=== PATIENT | female | born 1955 | race Caucasian/White ===

== ENCOUNTER 2022-05-29 12:59 | Inpatient (IN) | payer OTHER, MEDICAID ==
[~2022-05-29] VITALS: Ht 157.5 cm; Wt 66.7 kg
[2022-05-29 13:00] VITALS: BP_SYST 141
--- NOTE | 2022-05-29 13:00 | NUR ---
DR. CALIX ASSESSED AND PT TAKEN FOR CT SCAN. RECEIVED PT FROM BRIDGET CHAVARRIA . PT IS FROM [facility] WHERE THE STAFF STATES PT HAD A RIGHT LEANING WALK APPROXIMENTLY 4 HOURS AGO NO FACIAL DROOP, ARM OR FOOT DRIFT. PT HAS SLURRED SPEECH BUT SHE STATES SHE SPEAKS LIKE THAT AT BASELINE. VSS. DENIES PAIN. RESP E/U. ON R/A. NORMAL S1S2. ABDOMEN SOFT, NONTENDER, NODISTENDED. DENIES N/V/D/C. SKIN INTACT, DISTAL PULSES NORMAL. SKIN WARM, CAP REFILL < 3 SECS, NO PERIPHERAL EDEMA. IV CATH 18G TO RIGHT WRIST PLACED IN THE FIELD, SITE WNL, DRESSING CDI. DENIES PAIN. Addendum: 05/29/22 at 1339 by [id number] CLARIFICATION/CORRECTION: DR. SANDERS AT BEDSIDE.
--- NOTE | 2022-05-29 13:00 | NUR ---
BROUGHT IN BY [facility], DR SANDERS CALLED TO BEDSIDE. TAKEN IMMEDIATELY TO CT AND WILL GO TO ROOM #6
--- NOTE | 2022-05-29 13:16 | NUR ---
PT BACK FROM CT AND PLACED ON MONITOR. CXR COMPLETED AND LABS DRAWN.
[2022-05-29 13:25] LABS: BASOPHILS # (AUTO) 0.1 K/uL (0.0-0.2); BASOPHILS % (AUTO) 0.9 % (0.0-2.0); EOSINOPHILS # (AUTO) 0.1 K/uL (0.0-0.4); EOSINOPHILS % (AUTO) 1.5 % (0.0-4.0); HEMATOCRIT 38.5 % (36-48); LYMPHOCYTES # (AUTO) 1.7 K/uL (1.0-5.5); LYMPHOCYTES % (AUTO) 27.1 % (20.5-51.5); MEAN CORPUSCULAR VOLUME 87 fL (79.0-98.0); MONOCYTES # (AUTO) 0.5 K/uL (0.0-1.0); MONOCYTES % (AUTO) 7.6 % (1.7-9.3); NEUTROPHILS # (AUTO) 3.9 K/uL (1.8-7.7); NEUTROPHILS % (AUTO) 62.9 % (40.0-70.0); PLATELET COUNT (AUTO) 291 K/uL (130-430); RED BLOOD CELL COUNT(AUTO) 4.45 MIL/uL (4.2-6.2); RED CELL DISTRIBUTION WIDTH 13.1 % (9.0-15.0); WHITE BLOOD COUNT (AUTO) 6.2 K/uL (4.8-10.8)
[2022-05-29 13:38] LABS: ANION GAP 8 (5-15); CALCIUM 9.2 mg/dL (8.4-11.0); CHLORIDE 105 mmol/L (98-107); CREATININE 0.49 mg/dL (0.55-1.30); GLUCOSE 136 mg/dL (70-99); POTASSIUM 4.3 mmol/L (3.5-5.1); UREA NITROGEN, BLOOD 11 mg/dL (8-21)
[2022-05-29 13:40] LABS: GFR AFRICAN AMERICAN 162 mL/min (>90)
[2022-05-29 13:45] LABS: INR 1.1 (0.8-1.2)
[2022-05-29 13:46] LABS: ALANINE AMINOTRANSFERASE 10 U/L (12-78); ASPARTATE AMINOTRANSFERASE 10 U/L (10-37); TOTAL BILIRUBIN 0.4 mg/dL (0.0-1.0)
[2022-05-29 13:49] LABS: ALCOHOL, BLOOD < 3 mg/dL (<10)
[2022-05-29] MEDS ORDERED: KETAMINE 30 MG/3 ML SYRINGE IVP ONE (14:15)
--- NOTE | 2022-05-29 14:40 | NUR ---
PT YELLING AND SPENCER, PT REDIRECTED AND IS QUIET AT THIS TIME. DR. SANDERS STATED TO D/C [facility]. ORDER CARRIED OUT.
[2022-05-29 14:58] LABS: BILIRUBIN,URINE NEGATIVE (NEGATIVE); BLOOD, URINE NEGATIVE (NEGATIVE); CLARITY/URINE CLEAR (CLEAR); COLOR,URINE YELLOW (YELLOW); GLUCOSE,URINE NEGATIVE (NEGATIVE); KETONES,URINE NEGATIVE (NEGATIVE); LEUKOCYTE ESTERASE ,URINE TRACE (NEGATIVE); NITRITE, URINE NEGATIVE (NEGATIVE); PH,URINE 6.5 (5.0-8.0); PROTEIN URINE NEGATIVE (NEGATIVE); UROBILINOGEN,URINE 0.2 (0.2-1.0)
[2022-05-29 15:17] LABS: BARBITURATE, URINE NEGATIVE (NEG <=200); BENZODIAZEPINE, URINE POSITIVE (NEG <=150); CANNABINOID, URINE NEGATIVE (NEG <=50); COCAINE, URINE NEGATIVE (NEG <=150); METHAMPHETAMINES SCREEN,URINE NEGATIVE (NEG <=500); OPIATE, URINE NEGATIVE (NEG <=100); PHENCYCLIDINE SCREEN,URINE NEGATIVE (NEG <=25); URINE AMPHETAMINE NEGATIVE (NEG <=500); URINE METHADONE NEGATIVE (NEG <=200); URINE OXYCODONE SCREEN NEGATIVE (NEG <=100); URINE PROPOXYPHENE SCREEN NEGATIVE (NEG <=300)
[2022-05-29 15:18] LABS: UR TRICYCLIC ANTIDEPRESSANTS POSITIVE (NEG <=300)
--- NOTE | 2022-05-29 15:27 | NUR ---
COVID TEST OBTAINED LABELED AND GIVEN TO LAB
[2022-05-29 15:33] LABS: BACTERIA,URINE None Seen /HPF (None Seen); RBC,URINE NONE SEEN /HPF (0-3); WBC,URINE 0-3 /HPF (0-3)
[2022-05-29 15:34] LABS: MUCUS,URINE 1+ /LPF (None Seen)
[2022-05-29 15:35] LABS: CALCIUM OXALATE CRYSTALS,UR 0-10 /HPF (None Seen); URINE AMORPHOUS URATE 1+ /HPF (None Seen)
[2022-05-29] MEDS ORDERED: MELA3TAB41 PO (16:29)
[2022-05-29] MEDS ORDERED: CRAN450T9 PO (16:29)
[2022-05-29] MEDS ORDERED: AMAN100C19 PO (16:29)
[2022-05-29] MEDS ORDERED: POLY17PO4 PO (16:29)
[2022-05-29] MEDS ORDERED: FOLI-43 PO (16:29)
[2022-05-29] MEDS ORDERED: LANS30CA53 PO (16:29)
[2022-05-29] MEDS ORDERED: VIS50 PO (16:29)
[2022-05-29] MEDS ORDERED: APIX5TAB4 PO (16:29)
[2022-05-29] MEDS ORDERED: DOCU-144 PO (16:29)
[2022-05-29] MEDS ORDERED: LIP10 PO (16:29)
[2022-05-29] MEDS ORDERED: TRAZ150T77 PO (16:29)
[2022-05-29] MEDS ORDERED: SER100 PO (16:29)
[2022-05-29] MEDS ORDERED: DIVA250T PO (16:29)
[2022-05-29] MEDS ORDERED: SENN8.6T19 PO (16:29)
[2022-05-29] MEDS ORDERED: MIRA25TA PO (16:29)
[2022-05-29] MEDS ORDERED: ALPR0.5T PO (16:29)
--- NOTE | 2022-05-29 16:34 | NUR ---
Admit bed requested Patient will be admitted to care of Dr. CALIX. Admitted to TELEMETRY unit. Diagnosis DIZZINESS, MULTIPLE FALLS Inpatient (Yes or No) YES Observation (Yes or No) NO Orientation concerns or request close to nursing station (Yes or No) NO Covid Status NEG On vent or bipap NO Isolation requirements NO Needs a sitter NO From Home (Yes or if No enter name of facility) NO, [facility] Requires Dialysis (Yes or No) NO Med Rec Completed (Yes of No) YES
--- NOTE | 2022-05-29 17:14 | NUR ---
CALLED TO MAKE [facility] NURSE AWARE WE WILL BE TRANSPORTING PT. LUBE WORKER STATED SHE TO WAIT 10 MINUTES AND SHE MAKE THE NURSE AWARE WE ARE COMING.
[2022-05-29 18:08] VITALS: BP_SYST 148
[2022-05-29 19:35] VITALS: BP_SYST 126
--- NOTE | 2022-05-29 19:40 | NUR ---
INITIAL NOTE AT INITIAL ASSESSMENT, PATIENT IS RESTING IN BED, STABLE, NO SIGNS OF RESPIRATORY DISTRESS. SHE IS ABLE TO FOLLOW A CONVERSATION, BUT SHE SPEAKS TO HER HALLUCINATIONS WHEN NO STAFF IS THERE. PLAN OF CARE FOR THE EVENING IS COMMUNICATED WITH THE PATIENT. SHE VERBALIZED NO PAIN. PATIENT WAS ABLE TO SUCCESSFULLY TEACH BACK CORRECT USAGE OF CALL LIGHT. BED IS LOCKED, ALARMED, AND AT THE LOWEST SETTING. FALL, SAFETY, AND ASPIRATION PRECAUTIONS WILL BE IN PLACE THROUGHOUT THE SHIFT. POSSIBLE STOKE DEFICITS WILL BE MONITORED THROUGHOUT THE SHIFT.
--- NOTE | 2022-05-29 20:00 | NUR ---
HYGIENE CARE PATIENT PLACED ON BEDPAN FOR A VOID; HYGIENE CARE AND FRESH LINENS PROVIDED AT THIS TIME. SHE IS REPOSITIONED FOR COMFORT. CALL LIGHT PLACED WITHIN REACH. BED IS LOCKED, ALARMED, AND AT THE LOWEST LEVEL.
--- NOTE | 2022-05-29 22:10 | NUR ---
HIGH ALERT NOTE/ DR. CALIX ROUNDS DR. CALIX IS AT BEDSIDE MAKING ROUNDS AT THIS TIME. HE HAS GIVEN ORDERS TO GIVE SEROQUEL 100 MG PO ONE TIME TONIGHT; STATED HE WILL PLACE ORDERS HIMSELF TO CONTINUE THE ORDER BID STARTING IN THE MORNING. ORDERS READ BACK, VERIFIED, AND ENTERED.
[2022-05-29] MEDS ORDERED: QUEtiapine FUMARATE 100 MG TABLET PO ONE (22:13)
[2022-05-29] MEDS: APIXABAN 2.5 MG TABLET PO SCH (22:57)
[2022-05-29 23:46] VITALS: BP_SYST 120
[2022-05-30] MEDS ORDERED: ALPRAZolam 0.25 MG TABLET PO ONE (01:45)
--- NOTE | 2022-05-30 01:46 | NUR ---
HIGH ALERT NOTE: Called Dr. CALIX back at 0145 identified within the medical roster to verify physician authenticity. FOR ONE TIME ORDER OF XANAX 0.5MG PO. ORDER IS READ BACK AND VERIFIED.
--- NOTE | 2022-05-30 04:11 | NUR ---
ROUNDS PATIENT IS SLEEPING, STABLE, NO SIGNS OF RESPIRATORY DISTRESS. BED IS LOCKED, AND AT THE LOWEST LEVEL.
--- NOTE | 2022-05-30 06:00 | NUR ---
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 PATIENT DOES TALK TO HER HALLUCINATIONS BUT ONLY WHEN STAFF HAS LEFT HER BEDSIDE. SHE SLEPT WELL THROUGHOUT THE NIGHT. SHE REMAINED COOPERATIVE TO CARE AND REMEMBERED TO USE THE CALL LIGHT WHEN SHE NEEDED THE BEDPAN FOR A VOID. AT THIS TIME, PATIENT IS RESTING IN BED, STABLE, NO SIGNS OF RESPIRATORY DISTRESS. CALL LIGHT IS WITHIN REACH. BED IS LOCKED AND AT THE LOWEST LEVEL. FALL AND SAFETY PRECAUTIONS HAVE BEEN IN PLACE THROUGHOUT THE SHIFT. WILL CONTINUE TO MONITOR UNTIL REPORT IS GIVEN AT BEDSIDE TO AM NURSE.
[2022-05-30] MEDS: LANSOPRAZOLE 30 MG CAPSULE.DR PO SCH (06:12)
[2022-05-30 07:00] VITALS: BP_SYST 142
[2022-05-30 08:00] VITALS: BP_SYST 125
[2022-05-30] MEDS ORDERED: NON-FORMULARY MEDICATION (Mirabegron (Myrbetriq) 25 MG) PO SCH (09:00)
[2022-05-30] MEDS ORDERED: NON-FORMULARY MEDICATION (Cranberry Fruit (Cranberry) 1 TAB) PO SCH (09:00)
[2022-05-30] MEDS: DIVALPROEX SODIUM 250 MG TAB.SR.24H (DEPAKOTE ER) PO SCH ×2 (09:52→21:37)
[2022-05-30] MEDS: QUEtiapine FUMARATE 100 MG TABLET PO SCH ×2 (09:52→21:37)
[2022-05-30] MEDS: DOCUSATE SODIUM 100 MG CAPSULE PO SCH ×2 (09:53→21:37)
[2022-05-30] MEDS: FOLIC ACID 1 MG TABLET PO SCH (09:53)
[2022-05-30] MEDS: POLYETHYLENE GLYCOL 3350, 17 GM/ POWD.PACK PO SCH ×2 (09:53→21:38)
[2022-05-30] MEDS: APIXABAN 2.5 MG TABLET PO SCH ×2 (10:08→21:39)
[2022-05-30] MEDS: MIRABEGRON 25 MG PO SCH (10:31)
[2022-05-30 12:06] VITALS: BP_SYST 110
[2022-05-30 16:08] VITALS: BP_SYST 146
--- NOTE | 2022-05-30 19:15 | NUR ---
OPENING NOTE REPORT RECEIVED FROM DAYSHIFT NURSE. PATIENT RECEIVED LYING IN BED, AWAKE, NO S/S OF ACUTE DISTRESS. PATIENT DENIES PAIN. BREATHING EVEN AND UNLABORED. IV SITE IS PATENT, NO SIGNS OF INFILTRATION OR INFECTION NOTED. NO S/S OF STROKE. CALL LIGHT WITH PATIENT. BED ALARM ON. BED IS LOCKED AND AT LOWEST POSITION. WILL CONTINUE TO MONITOR.
[2022-05-30 20:00] VITALS: BP_SYST 138
[2022-05-30] MEDS: CRANBERRY 500 MG PO SCH (21:00)
[2022-05-30] MEDS: ATORVASTATIN 10 MG TABLET PO SCH (21:37)
[2022-05-30] MEDS: ALPRAZolam 0.25 MG TABLET PO SCH (21:37)
[2022-05-30] MEDS: traZODone HCL 50 MG TABLET (DESYREL) PO SCH (21:38)
[2022-05-30] MEDS: MELATONIN 5 MG TABLET PO SCH (21:39)
--- NOTE | 2022-05-30 23:00 | NUR ---
INCONTINENT CARE PATIENT CLEANED BY RN AT THIS TIME. PATIENT TOLERATED WELL. ALL NEEDS MET. WILL CONTINUE TO MONITOR.
[2022-05-31 00:36] VITALS: BP_SYST 115
--- NOTE | 2022-05-31 03:00 | NUR ---
VOIDED/BEDPAN/BM PATIENT REQUESTED FOR BED WILLIAM. PATIENT HAD BM. LOLA CARE DONE BY RN. PATIENT TOLERATED WELL. ALL NEEDS MET. WILL CONTINUE TO MONITOR.
[2022-05-31] MEDS: LANSOPRAZOLE 30 MG CAPSULE.DR PO SCH (06:13)
--- NOTE | 2022-05-31 06:25 | NUR ---
CLOSING NOTE PATIENT IN BED, AWAKE, NO S/S OF ACUTE DISTRESS. BREATHING EVEN AND UNLABORED. IV SITE PATENT, NO SIGNS OF INFILTRATION OR INFECTION NOTED. ALL NEEDS MET THROUGHOUT SHIFT. FALL, SAFETY PRECAUTIONS MAINTAINED THROUGHOUT SHIFT. WILL CONTINUE TO MONITOR UNTIL PATIENT CARE IS ENDORSED TO ONCOMING DAYSHIFT NURSE.
[2022-05-31 08:00] VITALS: BP_SYST 130
--- NOTE | 2022-05-31 08:28 | NUR ---
EVALUATION INDICATES CONTACT GUARD ASSISTANCE WITH THE FWW X 200 FT. INDEPENDENT BED MOBILITY, AND STAND BY ASSIST SIT TO STAND. PATIENT IS SAFE TO AMBULATE WITH NURSING ASSISTANCE. USE THE FWW. NO NEED FOR FURTHER PHYSICAL THERAPY.
[2022-05-31] MEDS: MIRABEGRON 25 MG PO SCH (09:00)
[2022-05-31] MEDS: POLYETHYLENE GLYCOL 3350, 17 GM/ POWD.PACK PO SCH ×2 (12:09→22:02)
[2022-05-31] MEDS: SENNOSIDES 8.6 MG TABLET PO SCH (12:10)
[2022-05-31] MEDS: FOLIC ACID 1 MG TABLET PO SCH (12:10)
[2022-05-31] MEDS: DOCUSATE SODIUM 100 MG CAPSULE PO SCH ×2 (12:11→22:03)
[2022-05-31] MEDS: APIXABAN 2.5 MG TABLET PO SCH ×2 (12:11→22:03)
[2022-05-31] MEDS: QUEtiapine FUMARATE 100 MG TABLET PO SCH ×2 (12:12→22:03)
[2022-05-31] MEDS: DIVALPROEX SODIUM 250 MG TAB.SR.24H (DEPAKOTE ER) PO SCH ×2 (13:10→22:04)
--- NOTE | 2022-05-31 19:15 | NUR ---
OPENING NOTE REPORT RECEIVED FROM DAYSHIFT NURSE. PATIENT RECEIVED LYING IN BED, AWAKE, NO S/S OF ACUTE DISTRESS. BREATHING EVEN AND UNLABORED. PATIENT DENIES PAIN. IV SITE PATENT, NO SIGNS OF INFILTRATION OR INFECTION NOTED. CALL LIGHT WITH PATIENT. BED ALARM ON. BED IS LOCKED AND AT LOWEST POSITION. WILL CONTINUE TO MONITOR.
[2022-05-31 20:00] VITALS: BP_SYST 131
[2022-05-31] MEDS: CRANBERRY 500 MG PO SCH (21:00)
[2022-05-31] MEDS: traZODone HCL 50 MG TABLET (DESYREL) PO SCH (22:02)
[2022-05-31] MEDS: ALPRAZolam 0.25 MG TABLET PO SCH (22:03)
[2022-05-31] MEDS: ATORVASTATIN 10 MG TABLET PO SCH (22:03)
[2022-05-31] MEDS: MELATONIN 5 MG TABLET PO SCH (22:06)
--- NOTE | 2022-05-31 23:00 | NUR ---
BEDPAN/PERICARE PATIENT VOIDED ON BEDPAN. PATIENT CLEANED AT THIS TIME BY RN. TOLERATED WELL. ALL NEEDS MET AT THIS TIME. WILL CONTINUE TO MONITOR.
[2022-06-01] VITALS: BP_SYST 127
--- NOTE | 2022-06-01 03:00 | NUR ---
ROUNDS PATIENT IN BED, RESTING. NO SIGNS OF DISCOMFORT NOTED. CHEST RISE AND FALL EVEN BILATERALLY. ALL NEEDS MET AT THIS TIME. WILL CONTINUE TO MONITOR.
[2022-06-01] MEDS: LANSOPRAZOLE 30 MG CAPSULE.DR PO SCH (06:14)
--- NOTE | 2022-06-01 06:36 | NUR ---
CLOSING NOTE PATIENT IN BED, RESTING COMFORTABLY. NO S/S OF ACUTE DISTRESS. BREATHING EVEN AND UNLABORED. IV SITE PATENT, NO SIGNS OF INFILTRATION OR INFECTION NOTED. ALL NEEDS MET THROUGHOUT SHIFT. FALL, SAFETY PRECAUTIONS MAINTAINED THROUGHOUT SHIFT. WILL CONTINUE TO MONITOR UNTIL PATIENT CARE IS ENDORSED TO ONCOMING DAYSHIFT NURSE.
[2022-06-01 08:00] VITALS: BP_SYST 121
[2022-06-01] MEDS: CRANBERRY 500 MG PO SCH ×2 (09:00→21:00)
[2022-06-01] MEDS: MIRABEGRON 25 MG PO SCH (09:00)
[2022-06-01] MEDS: DOCUSATE SODIUM 100 MG CAPSULE PO SCH ×2 (10:04→21:40)
[2022-06-01] MEDS: QUEtiapine FUMARATE 100 MG TABLET PO SCH ×2 (10:06→21:40)
[2022-06-01] MEDS: POLYETHYLENE GLYCOL 3350, 17 GM/ POWD.PACK PO SCH ×2 (10:06→21:41)
[2022-06-01] MEDS: APIXABAN 2.5 MG TABLET PO SCH ×2 (10:06→21:39)
[2022-06-01] MEDS: FOLIC ACID 1 MG TABLET PO SCH (10:06)
[2022-06-01] MEDS: DIVALPROEX SODIUM 250 MG TAB.SR.24H (DEPAKOTE ER) PO SCH ×2 (10:08→21:40)
--- NOTE | 2022-06-01 16:35 | NUR ---
Dietitian Recommendations * Mechanical soft, finely chopped diet LP, MS, RD Please refer to Nutrition Assessment for details.
[2022-06-01 20:00] VITALS: BP_SYST 115
[2022-06-01] MEDS: traZODone HCL 50 MG TABLET (DESYREL) PO SCH (21:38)
[2022-06-01] MEDS: ATORVASTATIN 10 MG TABLET PO SCH (21:38)
[2022-06-01] MEDS: ALPRAZolam 0.25 MG TABLET PO SCH (21:40)
[2022-06-01] MEDS: MELATONIN 5 MG TABLET PO SCH (21:41)
[2022-06-02 00:32] VITALS: BP_SYST 120
[2022-06-02 08:00] VITALS: BP_SYST 122
[2022-06-02] MEDS: DOCUSATE SODIUM 100 MG CAPSULE PO SCH ×2 (08:39→22:10)
[2022-06-02] MEDS: APIXABAN 2.5 MG TABLET PO SCH ×2 (08:40→22:12)
[2022-06-02] MEDS: DIVALPROEX SODIUM 250 MG TAB.SR.24H (DEPAKOTE ER) PO SCH ×2 (08:41→22:10)
[2022-06-02] MEDS: LANSOPRAZOLE 30 MG CAPSULE.DR PO SCH (08:42)
[2022-06-02] MEDS: FOLIC ACID 1 MG TABLET PO SCH (08:42)
[2022-06-02] MEDS: POLYETHYLENE GLYCOL 3350, 17 GM/ POWD.PACK PO SCH ×2 (08:42→22:09)
[2022-06-02] MEDS: QUEtiapine FUMARATE 100 MG TABLET PO SCH ×2 (08:42→22:10)
[2022-06-02] MEDS: CRANBERRY 500 MG PO SCH ×2 (09:00→21:00)
[2022-06-02] MEDS: MIRABEGRON 25 MG PO SCH (09:00)
[2022-06-02 11:59] VITALS: BP_SYST 115
[2022-06-02 18:23] VITALS: BP_SYST 115
[2022-06-02 20:00] VITALS: BP_SYST 142
--- NOTE | 2022-06-02 20:05 | NUR ---
BSC Patient requesting to use restroom; she was assisted to BSC, voided and returned to bed. Safety precautions in place and call light w/in reach.
[2022-06-02] MEDS: MELATONIN 5 MG TABLET PO SCH (22:09)
[2022-06-02] MEDS: ATORVASTATIN 10 MG TABLET PO SCH (22:10)
[2022-06-02] MEDS: ALPRAZolam 0.25 MG TABLET PO SCH (22:10)
[2022-06-02] MEDS: traZODone HCL 50 MG TABLET (DESYREL) PO SCH (22:14)
[2022-06-03 00:10] VITALS: BP_SYST 119
--- NOTE | 2022-06-03 00:37 | NUR ---
V/S, BSC V/S taken and stable, no distress. Patient requested use of BSC, stand assisted provided. She voided and returned to bed.
--- NOTE | 2022-06-03 02:32 | NUR ---
rounds, resting Patient resting w/eyes closed. Symmetrical rise and fall of chest, no distress noted. Safety precautions in place and call light w/in reach.
--- NOTE | 2022-06-03 05:15 | NUR ---
laborer wharf, BSC laborer wharf was in room for draw, patient cooperative. Patient out of bed for use of BSC. She voided and had a brown, soft formed BM. Returned to bed.
--- NOTE | 2022-06-03 06:50 | NUR ---
closing note Patient resting in comfortable position, denies pain. Needs met throughout shift. IV is saline locked and patent. Safety precautions in place. Will endorse care.
[2022-06-03 07:37] LABS: BASOPHILS % (AUTO) 0.8 % (0.0-2.0); EOSINOPHILS # (AUTO) 0.2 K/uL (0.0-0.4); HEMATOCRIT 37.6 % (36-48); LYMPHOCYTES # (AUTO) 2.1 K/uL (1.0-5.5); LYMPHOCYTES % (AUTO) 37.2 % (20.5-51.5); MEAN CORPUSCULAR VOLUME 87 fL (79.0-98.0); MONOCYTES # (AUTO) 0.6 K/uL (0.0-1.0); MONOCYTES % (AUTO) 9.9 % (1.7-9.3); NEUTROPHILS # (AUTO) 2.7 K/uL (1.8-7.7); NEUTROPHILS % (AUTO) 48.1 % (40.0-70.0); PLATELET COUNT (AUTO) 280 K/uL (130-430); RED BLOOD CELL COUNT(AUTO) 4.31 MIL/uL (4.2-6.2); RED CELL DISTRIBUTION WIDTH 13.5 % (9.0-15.0); WHITE BLOOD COUNT (AUTO) 5.7 K/uL (4.8-10.8)
[2022-06-03 08:08] LABS: CALCIUM 9.3 mg/dL (8.4-11.0); CREATININE 0.41 mg/dL (0.55-1.30); POTASSIUM 3.9 mmol/L (3.5-5.1)
[2022-06-03 08:56] VITALS: BP_SYST 106
[2022-06-03] MEDS: CRANBERRY 500 MG PO SCH (09:00)
[2022-06-03] MEDS: MIRABEGRON 25 MG PO SCH (09:00)
[2022-06-03] MEDS: POLYETHYLENE GLYCOL 3350, 17 GM/ POWD.PACK PO SCH (09:28)
[2022-06-03] MEDS: QUEtiapine FUMARATE 100 MG TABLET PO SCH (09:28)
[2022-06-03] MEDS: FOLIC ACID 1 MG TABLET PO SCH (09:29)
[2022-06-03] MEDS: DOCUSATE SODIUM 100 MG CAPSULE PO SCH (09:29)
[2022-06-03] MEDS: LANSOPRAZOLE 30 MG CAPSULE.DR PO SCH (09:29)
[2022-06-03] MEDS: APIXABAN 2.5 MG TABLET PO SCH (09:31)
[2022-06-03] MEDS: SENNOSIDES 8.6 MG TABLET PO SCH (09:33)
[2022-06-03] MEDS: DIVALPROEX SODIUM 250 MG TAB.SR.24H (DEPAKOTE ER) PO SCH (09:45)
[2022-06-03 11:25] VITALS: BP_SYST 141
[2022-06-03 11:29] VITALS: BP_SYST 109
--- NOTE | 2022-06-03 15:00 | NUR ---
Discharge Planning: DCP arranged transport with [facility] [phone] btw 5:30pm-6:00pm to [facility] [phone] Rm 1A. patient packet taken to nurse station.
--- NOTE | 2022-06-03 16:07 | NUR ---
Report given to BRIDGET Higgins at [facility] for continuity of care. Patient stable condition. ETA ambulance at 5 pm.
--- NOTE | 2022-06-03 16:07 | NUR ---
Notified patient's sister Jennifer Phillips regarding patient transfer today to [facility] via ambulance.
[2022-06-03 16:13] VITALS: BP_SYST 136
[2022-06-03 16:43] VITALS: BP_SYST 101
== END 2022-06-03 18:07 | disposition home or self-care (01) | DRG 92 ==
LOC: SED 12:59 → STU 16:33 → SMU 06-02 23:12
PROVIDERS: ADMIT Family Medicine; ATTEND Family Medicine
DX: G24.01 Drug induced subacute dyskinesia (principal); E44.1 Mild protein-calorie malnutrition; G24.9 Dystonia, unspecified; R29.6 Repeated falls; I10 Essential (primary) hypertension; G47.00 Insomnia, unspecified; E78.00 Pure hypercholesterolemia, unspecified; T50.995A Adverse effect of other drugs, medicaments and biological substances, initial encounter; F20.9 Schizophrenia, unspecified; Z20.822 Contact with and (suspected) exposure to COVID-19; F70 Mild intellectual disabilities; Z86.711 Personal history of pulmonary embolism; Z68.26 Body mass index [BMI] 26.0-26.9, adult; Y92.89 Other specified places as the place of occurrence of the external cause
CPT/HCPCS: 36415; 70450-TC; 71045; 76376; 80048; 80053; 80307; 81000; 83735; 84484; 85025; 85610-TC; 85730-TC; 87081; 93005; 99285; G0378; G0482